=== PATIENT | female | born 1985 | race American Indian/Alaskan Native ===

== ENCOUNTER 2017-06-11 17:28 | Emergency (ER) | payer OTHER ==
[2017-06-11 18:10] VITALS: RESP 18; TEMP 98.4
--- NOTE | 2017-06-11 18:26 | ED PDOC ---
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 hand numbness and tingling for the past 1 week. Pt. stated that she has rt. hand numbness and tingling for the past 1 week, feels stiffness, on and off, usually happened at the end of the day, no night sweat. Pt. stated that she has rt. shoulder pain s/p carrying her daughter about 1 month ago, aching pain, aggravated by rt. shoulder movement, no numbness or tingling, no palpitation, no rash, no rash, non-radiating pain, no neck pain, no chest pain or shortness of breath, no other medical or psychological complaints. Past Medical History - Provider Review Nursing Documentation Reviewed: Yes - Cardiac Hx Cardiac Disorders: No - Pulmonary Hx Respiratory Disorders: No - Neurological Hx Neurological Disorder: No - HEENT Hx HEENT Disorder: No - Renal Hx Renal Disorder: No - Endocrine/Metabolic Hx Endocrine Disorders: No - Hematological/Oncological Hx Blood Disorders: No - Integumentary Hx Dermatological Disorder: No - Musculoskeletal/Rheumatological Hx Musculoskeletal Disorders: No - Gastrointestinal Hx Gastrointestinal Disorders: No - Genitourinary/Gynecological Hx Genitourinary Disorders: No - Psychiatric Hx Psychophysiologic Disorder: No Hx Substance Use: Yes (thc) Family/Social History - Physician Review Nursing Documentation Reviewed: Yes Family/Social History: Unknown Family HX Smoking Status: Light Smoker < 10 Cigarettes Daily Hx Alcohol Use: Yes (every 3 months) Hx Substance Use: Yes (thc) Allergies/Home Meds Allergies/Adverse Reactions: Allergies No Known Allergies Allergy (Verified 06/11/17 18:26) Review of Systems - Review of Systems Constitutional: absent: Fatigue, Fevers Eyes: absent: Vision Changes ENT: absent: Hearing Changes Respiratory: absent: SOB, Cough Cardiovascular: absent: Chest Pain Gastrointestinal: absent: Abdominal Pain, Nausea, Vomiting Musculoskeletal: Arthralgias, Myalgias. absent: Back Pain, Neck Pain, Joint Swelling Skin: absent: Rash Neurological: absent: Headache, Dizziness Physical Exam Vital Signs Reviewed: Yes Vital Signs Temp Pulse Resp BP Pulse Ox 06/11/17 18:02 98.4 F 80 18 143/87 100 Temperature: Afebrile Blood Pressure: Normal Pulse: Regular Respiratory Rate: Normal Appearance: Positive for: Well-Appearing, Non-Toxic, Comfortable Pain Distress: Moderate Mental Status: Positive for: Alert and Oriented X 3 - Systems Exam Head: Present: Atraumatic, Normocephalic Pupils: Present: PERRL Extroacular Muscles: Present: EOMI Conjunctiva: Present: Normal Mouth: Present: Moist Mucous Membranes Neck: Present: Normal Range of Motion, Other (Cervical: +ttp on the rt. trapezius region and right posterior infraspinatus muscle region, FROM without limitation, sensation intact, motor 5/5, +Radial pulse, capillary refill< 2 seonds, neurovasuclar intact. ). No: Meningeal Signs Respiratory/Chest: Present: Clear to Auscultation, Good Air Exchange. No: Respiratory Distress, Accessory Muscle Use, Wheezes, Decreased Breath Sounds, Retracting, Rhonchi Cardiovascular: Present: Regular Rate and Rhythm, Normal S1, S2. No: Murmurs Abdomen: Present: Normal Bowel Sounds. No: Tenderness, Distention, Peritoneal Signs Back: Present: Normal Inspection Upper Extremity: Present: Normal Inspection, Other (RUE: +tinel and +phalen sign , no ecchymosis, no scaphoid tenderness, +radial pulse and capillary refill< 2 seconds, motor 5/5, neurovascular intact, no cellulitis or skin discoloration. ) . No: Cyanosis, Edema Lower Extremity: Present: Normal Inspection. No: Edema Neurological: Present: GCS=15, Speech Normal, Motor Func Grossly Intact, Gait Normal, Memory Normal Skin: Present: Warm, Dry, Normal Color. No: Rashes Psychiatric: Present: Alert, Oriented x 3, Normal Insight, Normal Concentration Medical Decision Making ED Course and Treatment: 06/11/17 18:33 -Rt. shoulder xray -RUE venuous doppler -Toradol and valium -Cock up splint -Observe and reassess 06/11/17 19:57 -Rt. shoulder xray show no fracture or dislocation. -RUE Venuous doppler: as per preliminary report, no acute DVT -Urine HCG negative -Pain decreased. -Cockup splint applied by me with neurovascular intact. -Discharge home cock up splint, celebrex, flexeril, follow up with your own pmd and orthopedic/hand specialist within 2 days, you need to have MRI studies on the cervical and rt. shoulder as follow up, return to the Emergency room for any new or worsening signs or symptoms. - RAD Interpretation Radiology Orders: 06/11/17 18:26 SHOULDER RIGHT [RAD] Stat DUPLEX UPPER EXTRM VEIN RIGHT [US] Stat Rt. shoulder xray: no fracture or dislocation RUE Venuous doppler: as per preliminary report, no acute DVT Range Master: Radiologist - Medication Orders Current Medication Orders: Discontinued Medications Diazepam (Valium) 5 mg PO ONCE ONE PRN Reason: Protocol Stop: 06/11/17 18:27 Last Admin: 06/11/17 20:08 Dose: 5 mg Ketorolac Tromethamine (Toradol) 60 mg IM STAT STA Stop: 06/11/17 18:27 Last Admin: 06/11/17 20:10 Dose: 60 mg MAR Pain Assessment Document 06/11/17 20:10 WERNER (Rec: 06/11/17 20:10 [id number] Pain Reassessment Is this a pain reassessment? Yes Presence of Pain Presence of Pain Yes Pain Scale Used Pain Scale Used Numeric Location Left, Right or Bilateral Right Pain Location Body Site Wrist Description Description Constant Intensity of Pain at present 7 Pain Behavior Rubbing Site Alleviating Factors/Management Position Change Techniques IM Administration Charges Document 06/11/17 20:10 WERNER (Rec: 06/11/17 20:10 [facility] [id number] Injection Site MAR Injection Site Right Deltoid Charges for Administration # of IM Administrations 1 - PA / DIGITAL HARDWARE DESIGN ENGINEER / Resident Statement MD/DO has reviewed & agrees with the documentation as recorded. Disposition/Present on Arrival - Present on Arrival Any Indicators Present on Arrival: No History of DVT/PE: No History of Uncontrolled Diabetes: No Urinary Catheter: No History of Decub. Ulcer: No History Surgical Site Infection Following: None - Disposition Have Diagnosis and Disposition been Completed?: Yes Diagnosis: Carpal tunnel syndrome of right wrist, Shoulder pain, Infraspinatus tendonitis Disposition: HOME/ ROUTINE Disposition Time: 19:59 Patient Plan: Discharge Patient Problems: Current Active Problems Problem Status Onset Carpal tunnel syndrome of right wrist Acute Shoulder pain Acute Infraspinatus tendonitis Acute Condition: IMPROVED Additional Instructions: -Discharge home cock up splint, celebrex, flexeril, follow up with your own pmd and orthopedic/hand specialist within 2 days, you need to have MRI studies on the cervical and rt. shoulder as follow up, return to the Emergency room for any new or worsening signs or symptoms. Prescriptions: Celecoxib [CeleBREX] 200 mg PO DAILY PRN #14 cap PRN Reason: Other Cyclobenzaprine [Cyclobenzaprine HCl] 10 mg PO TID PRN #21 tab PRN Reason: Other Referrals: Yahaira Wyman, [Primary Care Provider] - Follow up with primary John Bruno MD [Staff Provider] - Follow up with primary She Velarde MD [Staff Provider] - Follow up with primary Forms: WORK NOTE
[2017-06-11 20:25] VITALS: BP 119/91; PULSE 73; O2SAT 98
--- NOTE | 2017-06-12 08:49 | RAD ---
PROCEDURE: Radiographs of the Right Shoulder HISTORY: rt. shoulder pain x 1 month COMPARISON: No prior. FINDINGS: BONES: Normal. No fracture. JOINTS: Normal. Glenohumeral and acromioclavicular joints preserved. No osteoarthritis. SOFT TISSUES: Normal. OTHER FINDINGS: None. IMPRESSION: Normal radiographs of the right shoulder.
--- NOTE | 2017-06-12 11:30 | US ---
PROCEDURE: Right upper extremity venous US CLINICAL HISTORY: Arm pain and swelling Evaluate for deep venous thrombosis. PHYSICIAN(S): Chavo Murdock M.D FINDINGS: The visualized rightinternal jugular vein is sonographically normal and compressible. No evidence of obstruction or thrombus is seen. The visualized segments of the right subclavian vein are patent with normal waveforms. No sonographic evidence of obstruction or thrombosis is seen. The visualized deep venous system of the proximal right upper extremity is sonographically normal and compressible. IMPRESSION: 1. No sonographic evidence for deep venous thrombosis in the visualized segments of the right upper extremity.
== END 2017-06-11 20:30 | disposition home or self-care (01) ==
LOC: ED 17:28
DX: G56.01 Carpal tunnel syndrome, right upper limb (principal); M25.511 Pain in right shoulder; M77.9 Enthesopathy, unspecified; F17.210 Nicotine dependence, cigarettes, uncomplicated
CPT/HCPCS: 29125; 73030; 93971; 96372; 99282; J1885